=== PATIENT | female | born 1975 | race Two or more races ===

== ENCOUNTER 2022-01-19 11:41 | Emergency (ER) | payer MEDICAID, OTHER ==
[~2022-01-19 11:41] MED LIST: ACET-929 PO; LEVO100T8 PO; NORGTAB33 PO
== END 2022-01-19 12:14 | disposition left against medical advice (07) ==
LOC: ER 11:41
DX: N93.9 Abnormal uterine and vaginal bleeding, unspecified (principal); Z53.21 Procedure and treatment not carried out due to patient leaving prior to being seen by health care provider

== ENCOUNTER 2023-03-24 14:57 | Emergency (ER) | payer MEDICAID ==
[2023-03-24] VITALS (7 sets, daily range): BP systolic 90–107; BP diastolic 53–67; PULSE 62–80; RESP 14–17; TEMP 97.5–98.3; O2SAT 99
[~2023-03-24] VITALS: Ht 154.9 cm; Wt 70.5 kg
[2023-03-24 15:28] LABS: Basophils # (auto) 0 10 ^3/uL (0-0.2); Basophils % (auto) 0.6 % (0.0-2.0); Eosinophils # (auto) 0.1 10 ^3/uL (0-0.8); Eosinophils % (auto) 2.3 % (0.0-7.0); Mean Corpuscular Hemoglobin 22.8 pg (28.0-32.0); Mean Corpuscular Hgb Conc. 31.4 g/dL (32.0-36.0); Monocytes # (auto) 0.4 10 ^3/uL (0-1.3)
[2023-03-24 15:29] LABS: Hematocrit 21.3 % (36.0-46.0); Lymphocytes % (auto) 37.2 % (10.0-50.0); Mean Corpuscular Volume 72.6 fL (80.0-100.0); Monocytes % (auto) 7.6 % (0.0-12.0); Neutrophils # (auto) 2.8 10 ^3/uL (1.6-8.6); Neutrophils % (auto) 52.3 % (37.0-80.0); Nucleated Red Blood Cells % 0.1 %; Red Blood Cells 2.93 10^6/uL (4.0-5.20); White Blood Cell 5.4 10^3/uL (4.4-10.8)
[2023-03-24 15:35] LABS: Hemoglobin 6.7 g/dL (12.2-16.2)
[2023-03-24 15:43] LABS: INR 1.04 (0.9-1.15); Partial Thromboplastin Time 27.1 SEC (24.5-34.5); Prothrombin Time 10.9 sec (9.3-11.8)
[2023-03-24 15:58] LABS: Alanine Aminotransferase 16 U/L (7-40); Alkaline Phosphatase 92 U/L (46-116); Anion Gap 4.7 (5-15); Aspartate Aminotransferase 12 U/L (13-40); BUN/Creatinine Ratio 15.9 (10.0-20.0); Blood Urea Nitrogen 11 mg/dL (9-23); Calcium 8.4 mg/dL (8.5-10.1); Carbon Dioxide 26.3 mmol/L (20-30); Chloride 108 mmol/L (98-107); Glucose 89 mg/dL (74-106); Sodium 139 mmol/L (136-145)
[2023-03-24 15:59] LABS: Bilirubin, Total 0.3 mg/dL (0.2-1.0); Total Protein 6.7 g/dL (5.7-8.2)
[2023-03-24 18:31] LABS: Urine Bacteria NONE SEEN /hpf (None Seen); Urine Blood 2+ /uL (Negative); Urine Clarity Clear (Clear); Urine Color Straw (Yellow); Urine Protein, UAD Negative (Negative); Urine Specific Gravity 1.011 (1.001-1.035); Urine Urobilinogen Normal (Negative); Urine WBC 2 /hpf (0 - 5); Urine pH 6.5 (5.0-8.0)
[2023-03-25 01:20] VITALS: BP 105/64; PULSE 84; RESP 13; TEMP 98.3
[2023-03-25 01:35] VITALS: BP 97/61; PULSE 74; RESP 18; TEMP 98.2; O2SAT 97
== END 2023-03-25 02:31 | disposition home or self-care (01) ==
LOC: EDBD 14:57 → EDUNIT# 14:57 → ER 14:57
DX: D64.9 Anemia, unspecified (principal); N93.9 Abnormal uterine and vaginal bleeding, unspecified; Z79.899 Other long term (current) drug therapy; Z90.49 Acquired absence of other specified parts of digestive tract; Z98.890 Other specified postprocedural states
CPT/HCPCS: 36415; 36430; 76830; 76856; 80053; 81001; 85025; 85610; 85730; 86850; 86900; 86901; 86920; 99285; P9016

== ENCOUNTER 2023-08-21 18:38 | Inpatient (IN) | payer MEDICAID ==
[~2023-08-21] VITALS: Ht 152.4 cm; Wt 78.3 kg
[2023-08-21] MEDS ORDERED: MORPHINE SULFATE 4 MG/ML SYR/VIAL IV ONE (19:30)
[2023-08-21] MEDS ORDERED: SODIUM CHLORIDE 0.9% 500 ML IVB ONE (19:30)
[2023-08-21] MEDS ORDERED: ONDANSETRON HCL 4 MG/2 ML VIAL IV ONE (19:30)
[2023-08-21 20:11] LABS: Basophils # (auto) 0 10 ^3/uL (0-0.2); Eosinophils # (auto) 0.2 10 ^3/uL (0-0.8); Lymphocytes # (auto) 2.4 10 ^3/uL (0.4-5.4); Monocytes # (auto) 0.6 10 ^3/uL (0-1.3)
[2023-08-21 20:13] LABS: Basophils % (auto) 0.3 % (0.0-2.0); Hematocrit 34.6 % (36.0-46.0); Lymphocytes % (auto) 25.6 % (10.0-50.0); Mean Corpuscular Hemoglobin 26.4 pg (28.0-32.0); Mean Corpuscular Hgb Conc. 31.8 g/dL (32.0-36.0); Mean Corpuscular Volume 83.2 fL (80.0-100.0); Monocytes % (auto) 6.3 % (0.0-12.0); Neutrophils # (auto) 6.2 10 ^3/uL (1.6-8.6); Neutrophils % (auto) 65.8 % (37.0-80.0); Nucleated Red Blood Cells % 0.1 %; Red Blood Cells 4.16 10^6/uL (4.0-5.20); Red Cell Distribution Width 17.2 % (11.8-14.3); White Blood Cell 9.4 10^3/uL (4.4-10.8)
[2023-08-21 20:16] LABS: Urine Bacteria NONE SEEN /hpf (None Seen); Urine Blood Negative /uL (Negative); Urine Clarity Clear (Clear); Urine Color Yellow (Yellow); Urine Mucus FEW (None Seen); Urine Protein, UAD TRACE (Negative); Urine Specific Gravity 1.028 (1.001-1.035); Urine Urobilinogen Normal (Negative); Urine WBC 1 /hpf (0 - 5); Urine pH 5.5 (5.0-8.0)
[2023-08-21] MEDS ORDERED: MORPHINE SULFATE INJ 2 MG/ml SYRG IV PRN (21:15)
[2023-08-21] MEDS ORDERED: PIPERACILLIN-TAZOB 3.375GM 100 ML IV ONE (21:15)
[2023-08-21] MEDS ORDERED: ONDANSETRON HCL 4 MG/2 ML VIAL IV PRN (21:15)
[2023-08-21 21:20] LABS: Alanine Aminotransferase 18 U/L (7-40); Albumin 4.4 g/dL (3.2-4.8); Alkaline Phosphatase 98 U/L (46-116); Anion Gap 6 (5-15); Aspartate Aminotransferase 18 U/L (13-40); BUN/Creatinine Ratio 16.7 (10.0-20.0); Bilirubin, Total 0.3 mg/dL (0.2-1.0); Blood Urea Nitrogen 13 mg/dL (9-23); Calcium 8.9 mg/dL (8.7-10.4); Carbon Dioxide 25 mmol/L (20-30); Chloride 108 mmol/L (98-107); Glucose 90 mg/dL (74-106); Lipase 48 U/L (12-53); Potassium 4.3 mmol/L (3.5-5.1); Sodium 139 mmol/L (136-145); Total Protein 7.4 g/dL (5.7-8.2)
[2023-08-21 22:07] LABS: INR 1.01 (0.9-1.15); Prothrombin Time 10.6 sec (9.3-11.8)
[2023-08-22] MEDS: SODIUM CHLORIDE 0.9% 1,000 ML IV SCH ×2 (03:27→10:35)
[2023-08-22 05:34] LABS: Basophils # (auto) 0 10 ^3/uL (0-0.2); Basophils % (auto) 0.2 % (0.0-2.0); Eosinophils # (auto) 0.1 10 ^3/uL (0-0.8); Eosinophils % (auto) 1.9 % (0.0-7.0); Hematocrit 32.6 % (36.0-46.0); Hemoglobin 10.5 g/dL (12.2-16.2); Lymphocytes % (auto) 26.6 % (10.0-50.0); Mean Corpuscular Hemoglobin 26.9 pg (28.0-32.0); Mean Corpuscular Hgb Conc. 32.3 g/dL (32.0-36.0); Mean Corpuscular Volume 83.1 fL (80.0-100.0); Monocytes # (auto) 0.4 10 ^3/uL (0-1.3); Monocytes % (auto) 5.7 % (0.0-12.0); Neutrophils # (auto) 4.9 10 ^3/uL (1.6-8.6); Neutrophils % (auto) 65.6 % (37.0-80.0); Red Blood Cells 3.93 10^6/uL (4.0-5.20); Red Cell Distribution Width 17.2 % (11.8-14.3); White Blood Cell 7.5 10^3/uL (4.4-10.8)
[2023-08-22 05:52] LABS: Alanine Aminotransferase 15 U/L (7-40); Alkaline Phosphatase 89 U/L (46-116); Anion Gap 6 (5-15); Aspartate Aminotransferase 15 U/L (13-40); BUN/Creatinine Ratio 16.7 (10.0-20.0); Bilirubin, Total 0.5 mg/dL (0.2-1.0); Blood Urea Nitrogen 12 mg/dL (9-23); Calcium 8.4 mg/dL (8.7-10.4); Carbon Dioxide 25 mmol/L (20-30); Chloride 110 mmol/L (98-107); Glucose 94 mg/dL (74-106); Potassium 4.2 mmol/L (3.5-5.1); Sodium 141 mmol/L (136-145); Total Protein 6.9 g/dL (5.7-8.2)
[2023-08-22 06:00] VITALS: PULSE 64; RESP 16; O2SAT 99
[2023-08-22] MEDS: PIPERACILLIN-TAZOB 3.375GM 100 ML IV SCH ×3 (06:11→18:00)
[2023-08-22 09:36] VITALS: PULSE 68; RESP 19; O2SAT 97
[2023-08-22 12:43] VITALS: BP 95/59; PULSE 67; RESP 19; TEMP 98.2; O2SAT 98
[2023-08-22 12:45] VITALS: BP 95/59; PULSE 67; RESP 19; TEMP 98.2; O2SAT 98
[2023-08-22 17:00] VITALS: BP 114/67; PULSE 85; RESP 20; TEMP 98; O2SAT 100
== END 2023-08-22 18:25 | disposition left against medical advice (07) | DRG 254 ==
LOC: ER 18:38 → OVERFLOW 21:17 → WEST WING 08-22 09:45
PROVIDERS: ADMIT Internal Medicine Pulmonary Disease; ATTEND Internal Medicine Pulmonary Disease
DX: K35.80 Unspecified acute appendicitis (principal); D50.0 Iron deficiency anemia secondary to blood loss (chronic); E03.9 Hypothyroidism, unspecified; Z53.29 Procedure and treatment not carried out because of patient's decision for other reasons; Z90.49 Acquired absence of other specified parts of digestive tract; Z79.899 Other long term (current) drug therapy; Z80.6 Family history of leukemia; Z80.49 Family history of malignant neoplasm of other genital organs; Z83.3 Family history of diabetes mellitus
CPT/HCPCS: 36415; 71045; 74176; 76705; 80053; 81001; 83690; 84702; 85025; 85610; 85730; 86850; 86870; 86880; 86900; 86901; 86905; 86906; 86978; G0378; J2543